=== PATIENT | male | born 2000 | race Caucasian/White ===

== ENCOUNTER 2023-07-04 20:23 | Inpatient (IN) | payer OTHER ==
[~2023-07-04] VITALS: Ht 177.8 cm; Wt 105.1 kg
[2023-07-04] VITALS (151 sets, daily range): BP systolic 125; BP diastolic 76; PULSE 66; TEMP 99; O2SAT 84–100
--- NOTE | 2023-07-04 20:20 | NUR ---
Received report from [employer] nurseCynthia.
--- NOTE | 2023-07-04 21:04 | NUR ---
Patient arrives to ICU room 4 via EMS cot. Patient is alert and oriented. He is able to ambulate independently to ICU bed. Initial vitals within normal limits. He denies any pain or discomfort. Magui notified of patient's arrival. Call light provided, bed in lowest position.
[2023-07-04 21:50] LABS: HEMOGLOBIN 12.8 g/dl (13.5-18.0)
[2023-07-04 21:52] LABS: HEMATOCRIT 35.5 % (42.0-52.0)
--- NOTE | 2023-07-04 22:00 | NUR ---
Patient's belongings include street clothes, a cell phone, a wallet, and a set of keys. He denies having hearing aids or dentures. Reports currently wearing contacts. Denies having any removable jewelry on his person at this time. Patient denies taking any home medications.
[2023-07-04 22:06] LABS: CALCIUM 8.7 mg/dL (8.4-10.2); CREATININE, serum 1.05 mg/dL (0.72-1.25); POTASSIUM 4.4 mmol/L (3.5-4.5)
--- NOTE | 2023-07-04 23:51 | NUR ---
Patient passed 700mL of bright red stool that appeared to be more blood than stool. Magui notified. Orders received to change H&H to q4hr and to obtain a type and cross.
[2023-07-05] VITALS (195 sets, daily range): BP systolic 69–113; BP diastolic 28–77; PULSE 61–115; TEMP 98–98.9; O2SAT 69–100
[2023-07-05 01:18] LABS: HEMATOCRIT 31.1 % (42.0-52.0); HEMOGLOBIN 11.3 g/dl (13.5-18.0)
--- NOTE | 2023-07-05 03:49 | NUR ---
Patient has 800mL of stool consisting primarily of blood at this time. Magui notified. Last hemoglobin of 11.3 at 0114. Next draw scheduled for 0500. Type and cross as well as blood consent obtained.
[2023-07-05 05:22] LABS: BASO % 0.4 % (0.0-2.0); EOS # 0.1 K/mm3 (0.0-0.7); EOS % 1.2 % (0.0-4.0); GRAN # 7.8 K/mm3 (1.4-6.5); GRAN % 79.2 % (42.2-75.2); HEMOGLOBIN 10.2 g/dl (13.5-18.0); LYMPH # 1.2 K/mm3 (1.2-3.4); LYMPH % 11.8 % (20.0-51.0); MEAN CELL VOLUME 90 fl (80.0-100.0); MEAN CORPUSCULAR HEMOGLOBIN 32 pg (27-31); MEAN CORPUSCULAR HGB CONC 36 g/dl (33.0-37.0); MEAN PLATELET VOLUME 11.3 fl (7.4-10.4); MONO # 0.6 K/mm3 (0.1-0.6); MONO % 6.5 % (1.7-9.3); PLATELET COUNT 214 K/mm3 (130-400); RED BLOOD COUNT 3.18 M/mm3 (4.20-5.60); REDCELL DISTRIBUTION WIDTH-CV 12.4 % (11.5-14.5)
[2023-07-05 05:32] LABS: HEMATOCRIT 28.5 % (42.0-52.0)
[2023-07-05 05:38] LABS: CALCIUM 8.2 mg/dL (8.4-10.2); CREATININE, serum 1.11 mg/dL (0.72-1.25); POTASSIUM 4.4 mmol/L (3.5-4.5)
[2023-07-05 09:34] LABS: HEMATOCRIT 24.7 % (42.0-52.0); HEMOGLOBIN 8.8 g/dl (13.5-18.0)
--- NOTE | 2023-07-05 10:53 | NUR ---
0700 REPORT RECEIVED FROM KRIS VICTORIA. PT IN BED, VSS. FLUIDS INFUSING TO PERIPHERAL IV TO L AC ORDERED. PT IS ALERT AND ORIENTED, USES CALL LIGHT FOR NEEDS. 0815 BLOOD PRESSURES NOTED TO BE TRENDING DOWN, DR GUEVARA NOTIFIED. 900ML OF NS GIVEN AT BOLUS RATE. PRESSURES IMPROVED.
--- NOTE | 2023-07-05 12:15 | NUR ---
SW attmepted to complete intake on pt, however, he is currently in surgery. Will continue to follow.
--- NOTE | 2023-07-05 12:19 | NUR ---
SW attempted to visit pt for intake. Pt having PICC line inserted. Will return later.
[2023-07-05 18:14] LABS: HEMATOCRIT 23.6 % (42.0-52.0); HEMOGLOBIN 8.5 g/dl (13.5-18.0)
--- NOTE | 2023-07-05 18:54 | NUR ---
PT TAKEN TO ENDO FOR SCOPE VIA COT AT 1120. BLOOD INFUSING AT TIME OF TRANSFER, VS NOT OBTAINED BY THIS NURSE DURING SCOPE. PT RETURNED TO ICU AT 1200, POST OP VSS THROUGHOUT SHIFT.
--- NOTE | 2023-07-05 19:00 | NUR ---
Received report from KRIS Garvey.
--- NOTE | 2023-07-05 20:00 | NUR ---
Patient resting quietly in bed. He has a visitor at bedside. Vitals within normal limits. He denies any pain or discomfort. Continues to receive IVF according to orders in [facility]. No further needs noted at this time.
[2023-07-06] VITALS (119 sets, daily range): BP systolic 92–141; BP diastolic 52–75; PULSE 66–101; TEMP 98–99; O2SAT 82–100
[2023-07-06 00:13] LABS: HEMATOCRIT 20.6 % (42.0-52.0); HEMOGLOBIN 7.3 g/dl (13.5-18.0)
[2023-07-06 06:36] LABS: BASO # 0.1 K/mm3 (0.0-0.2); BASO % 0.7 % (0.0-2.0); EOS # 0.2 K/mm3 (0.0-0.7); EOS % 3.2 % (0.0-4.0); GRAN % 66.7 % (42.2-75.2); LYMPH # 1.5 K/mm3 (1.2-3.4); LYMPH % 20.5 % (20.0-51.0); MEAN CELL VOLUME 90 fl (80.0-100.0); MEAN CORPUSCULAR HGB CONC 36 g/dl (33.0-37.0); MEAN PLATELET VOLUME 11.4 fl (7.4-10.4); MONO # 0.6 K/mm3 (0.1-0.6); MONO % 7.7 % (1.7-9.3); PLATELET COUNT 134 K/mm3 (130-400)
[2023-07-06 06:41] LABS: HEMATOCRIT 22.5 % (42.0-52.0); MEAN CORPUSCULAR HEMOGLOBIN 32 pg (27-31)
[2023-07-06 06:44] LABS: CALCIUM 7.9 mg/dL (8.4-10.2); CREATININE, serum 0.95 mg/dL (0.72-1.25); MAGNESIUM 1.9 mg/dL (1.6-2.6); POTASSIUM 3.7 mmol/L (3.5-4.5)
--- NOTE | 2023-07-06 08:30 | NUR ---
Resting in bed; alert and oriented. Denies any dizziness or other GI symptoms. Has not reported any bloody stools overnight or this morning. Does report some abdominal tenderness, but otherwise states he feels "much better". VS stable. Call light left within reach.
--- NOTE | 2023-07-06 11:12 | NUR ---
SW reviewed pt's clinical records this morning and noted he was admitted for rectal bleeding. SW briefly met with pt and his of 3 mos, Jennifer @ the bedside after rounds this morning. Pt reports he is feeling better and is now schedule to transfer to the medicine floor upstairs. He reports he has been in the [employer] for 5 years and is stationed @ [facility]. Pt does not have a primary care provider, but when SW offered him the list of primary providers, he declined. Pt fills his prescriptions @ the [facility] and he reports he has orders to go to [facility] next week. Pt discussed this with attending MD during rounds and was told F/U care will be explored. SW will continue to follow.
[2023-07-06 11:17] LABS: HEMATOCRIT 23.4 % (42.0-52.0); HEMOGLOBIN 8.5 g/dl (13.5-18.0)
--- NOTE | 2023-07-06 18:00 | NUR ---
pt admitted to room from ICU, pt a&ox4. vss. pt on contact precautions. PICC to ELIANA as well as INT to left AC. assessment complete. pt denies needs at this time. call light in reach.
[2023-07-07 03:46] VITALS: BP 99/53; PULSE 63; TEMP 98.3
[2023-07-07 06:39] LABS: BASO % 0.5 % (0.0-2.0); EOS # 0.3 K/mm3 (0.0-0.7); EOS % 3.3 % (0.0-4.0); GRAN # 5.1 K/mm3 (1.4-6.5); GRAN % 66.4 % (42.2-75.2); LYMPH # 1.7 K/mm3 (1.2-3.4); LYMPH % 21.7 % (20.0-51.0); MEAN CELL VOLUME 93 fl (80.0-100.0); MEAN CORPUSCULAR HGB CONC 35 g/dl (33.0-37.0); MONO # 0.5 K/mm3 (0.1-0.6); MONO % 6.8 % (1.7-9.3); PLATELET COUNT 149 K/mm3 (130-400); RED BLOOD COUNT 2.48 M/mm3 (4.20-5.60); REDCELL DISTRIBUTION WIDTH-CV 13.1 % (11.5-14.5)
[2023-07-07 06:43] LABS: MEAN CORPUSCULAR HEMOGLOBIN 32 pg (27-31)
[2023-07-07 07:00] LABS: CALCIUM 8.4 mg/dL (8.4-10.2); CREATININE, serum 0.99 mg/dL (0.72-1.25); MAGNESIUM 2.1 mg/dL (1.6-2.6); POTASSIUM 3.6 mmol/L (3.5-4.5)
[2023-07-07 07:53] VITALS: BP 127/50; PULSE 77; TEMP 98.2
--- NOTE | 2023-07-07 08:59 | NUR ---
pt resting in bed. vss. denies pain. NS infusing in ELIANA PICC at 75ml/hr. no needs at this time. call light in reach.
[2023-07-07 09:00] VITALS: BP_SYST 127
--- NOTE | 2023-07-07 09:07 | NUR ---
[employer] collaborated with Treatment Team to assess Patient for discharge readiness. Patient is assessed to be ready for discharge home today.
--- NOTE | 2023-07-07 10:30 | NUR ---
PICC removed by [facility]. instructed pt to lay flat for 30 minutes. dressing cdi.
--- NOTE | 2023-07-07 11:00 | NUR ---
discharge instructions given to pt. all questions answered. note from dr cadena about deployment given as well.
--- NOTE | 2023-07-07 11:16 | NUR ---
pt escorted to personal vehicle by PCT
== END 2023-07-07 11:15 | disposition home or self-care (01) | DRG 372 ==
LOC: IMCU 20:23 → ICU 21:19 → SURG 21:19
PROVIDERS: Internal Medicine; Internal Medicine Gastroenterology; Nurse Practitioner Family; ADMIT Internal Medicine
PROC: 02HV33Z Insertion of Infusion Device into Superior Vena Cava, Percutaneous Approach (ICD-10-PCS; 2023-07-05)
PROC: 30243N1 Transfusion of Nonautologous Red Blood Cells into Central Vein, Percutaneous Approach (ICD-10-PCS; 2023-07-05)
PROC: 0DJ08ZZ Inspection of Upper Intestinal Tract, Via Natural or Artificial Opening Endoscopic (ICD-10-PCS; principal; 2023-07-05 11:30)
DX: A04.4 Other intestinal Escherichia coli infections (principal); D62 Acute posthemorrhagic anemia; I95.9 Hypotension, unspecified; N32.89 Other specified disorders of bladder; F17.210 Nicotine dependence, cigarettes, uncomplicated; Z88.8 Allergy status to other drugs, medicaments and biological substances
CPT/HCPCS: C1751; C9113; J2704; J7030; P9016